=== PATIENT | male | born 1985 | race Caucasian/White ===

== ENCOUNTER 2017-07-25 14:39 | Emergency (ER) | payer BC ==
[2017-07-25 14:45] VITALS: BP 144/87; PULSE 98; TEMP 98; BMI 39.5
--- NOTE | 2017-07-25 16:02 | PDOC ---
History of Present Illness - History of Present Illness Initial Comments: 07/25/17 16:05 31 y/o M with a PMH of HTN presents to the ED with low back pain since yesterday. Patient bent down to tie his shoes yesterday and when he stood up he felt something pop in his back. Since then, he has had severe worsening pain in his low back. He reports that movement exacerbates his pain. He took Aleve with no relief. Denies numbness, tingling. Denies fever, chills. Denies any other complaints. <Briana Guo - Last Filed: 07/25/17 16:05> <Catracho Yuen - Last Filed: 07/25/17 17:20> - General Chief Complaint: Back Pain Stated Complaint: BACK PAIN Time Seen by Provider: 07/25/17 14:42 Past History <Briana Guo - Last Filed: 07/25/17 16:05> - Past Medical History COPD: No Hypercholesterolemia: Yes - Surgical History Abdominal Surgery: Yes (HERNIA REPAIR) Cholecystectomy: Yes - Suicide/Smoking/Psychosocial Hx Smoking History: Never smoked Have you smoked in the past 12 months: No Information on smoking cessation initiated: No Hx Alcohol Use: (occasional) <Catracho Yuen - Last Filed: 07/25/17 17:20> - Past Medical History Allergies/Adverse Reactions: Allergies Allergy/AdvReac Type Severity Reaction Status Date / Time No Known Allergies Allergy Verified 07/25/17 14:40 Home Medications: Ambulatory Orders Blood Pressure Pill 1 tab PO DAILY 07/25/17 Cyclobenzaprine HCl [Flexeril -] 10 mg PO TID PRN #21 tablet 07/25/17 Ergocalciferol (Vitamin D2) [Vitamin D2] 50,000 unit PO WEEKLY 07/25/17 Naproxen 500 mg PO BID PRN #20 tablet 07/25/17 Naproxen Sodium [Aleve] 220 mg PO ASDIR 07/25/17 Oxycodone HCl/Acetaminophen [Percocet 5-325 mg Tablet] 1 - 2 tab PO Q6H PRN #20 tab MDD 6 07/25/17 Pantoprazole Sodium [Protonix] 40 mg PO DAILY #7 tablet. 07/25/17 Prednisone [Deltasone] 60 mg PO DAILY #12 tablet 07/25/17 Review of Systems - Review of Systems Comments:: 07/25/17 16:05 GENERAL/CONSTITUTIONAL: No fever or chills. No weakness. HEAD, EYES, EARS, NOSE AND THROAT: No change in vision. No ear pain or discharge. No sore throat. CARDIOVASCULAR: No chest pain or shortness of breath. RESPIRATORY: No cough, wheezing, or hemoptysis. GASTROINTESTINAL: No nausea, vomiting, diarrhea or constipation. GENITOURINARY: No dysuria, frequency, or change in urination. MUSCULOSKELETAL: (+) low back pain. No joint or muscle swelling or pain. No neck pain. SKIN: No rash NEUROLOGIC: No headache, vertigo, loss of consciousness, or change in strength/ sensation. ENDOCRINE: No increased thirst. No abnormal weight change. HEMATOLOGIC/LYMPHATIC: No anemia, easy bleeding, or history of blood clots. ALLERGIC/IMMUNOLOGIC: No hives or skin allergy. <Briana Guo A - Last Filed: 07/25/17 16:05> *Physical Exam - Vital Signs Last Vital Signs Temp Pulse Resp BP Pulse Ox 98 F 98 H 18 144/87 100 07/25/17 14:40 07/25/17 14:40 07/25/17 14:40 07/25/17 14:40 07/25/17 14:40 - Physical Exam Comments: 07/25/17 16:06 GENERAL: Awake, alert, and fully oriented, in no acute distress HEAD: No signs of trauma EYES: PERRLA, EOMI, sclera anicteric, conjunctiva clear ENT: Auricles normal inspection, hearing grossly normal, nares patent, oropharynx clear without exudates. Moist mucosa NECK: Normal ROM, supple, no lymphadenopathy, JVD, or masses BACK: Tenderness to palpation of L5. Pain reproducible wtih flexion, tenderness to palpation of his left lower back. EXTREMITIES: Normal range of motion, no edema. No clubbing or cyanosis. No cords, erythema, or tenderness NEUROLOGICAL: Cranial nerves II through XII grossly intact. Normal speech, normal gait SKIN: Warm, Dry, normal turgor, no rashes or lesions noted. <Briana Guo A - Last Filed: 07/25/17 16:05> - Vital Signs Last Vital Signs Temp Pulse Resp BP Pulse Ox 98 F 98 H 18 144/87 100 07/25/17 14:40 07/25/17 14:40 07/25/17 14:40 07/25/17 14:40 07/25/17 14:40 <Catracho Yuen - Last Filed: 07/25/17 17:20> ED Treatment Course - Medications Given in the ED: ED Medications Discontinued Medications Generic Name Dose Route Start Last Admin Trade Name Freq PRN Reason Stop Dose Admin Oxycodone/Acetaminophen 1 combo 07/25/17 15:01 07/25/17 15:12 Percocet 5/325 - PO 07/25/17 15:02 1 combo ONCE ONE Administration <Briana Guo - Last Filed: 07/25/17 16:05> - RADIOLOGY Radiology Studies Ordered: Category Date Time Status SPINE-LUMBAR SACRAL [RAD] Stat Radiology 07/25/17 15:01 Taken - Medications Given in the ED: ED Medications Discontinued Medications Generic Name Dose Route Start Last Admin Trade Name Freq PRN Reason Stop Dose Admin Oxycodone/Acetaminophen 1 combo 07/25/17 15:01 07/25/17 15:12 Percocet 5/325 - PO 07/25/17 15:02 1 combo ONCE ONE Administration <Catracho Yuen - Last Filed: 07/25/17 17:20> Medical Decision Making - Medical Decision Making 07/25/17 17:14 A portion of this note was documented by scribe services under my direction. I have reviewed the details of the note, within reason, and agree with the documentation with the following case summary and management plan written by me. Patient treated in the ED. Nursing notes are reviewed and incorporated into the medical decision-making. Vital signs reviewed. Vital Signs Temp Pulse Resp BP Pulse Ox 98 F 98 H 18 144/87 100 07/25/17 14:40 07/25/17 14:40 07/25/17 14:40 07/25/17 14:40 07/25/17 14:40 31-year-old male with past medical history of obesity presents to the emergency department with back pain. Yesterday, patient with the bend over to pick up man an object and felt a sudden onset of lower back pain worse in the left lower side. I suspect the patient may potentially have herniated his disc or with muscle spasms. Lumbosacral x-ray reviewed by me, pending official read, demonstrates no acute findings. Patient has a spine doctor that he can follow-up with. The patient will go home with his fiance. Patient's pain is improved somewhat with Percocets but advised the patient may potentially need physical therapy and/or MRI as an outpatient. Patient verbalizes understanding agrees with plan. I discussed the physical exam findings, ancillary test results and final diagnoses with the patient. I answered all of the patient's questions. The patient was satisfied with the care received and felt comfortable with the discharge plan and treatment plan. The patient will call their primary care physician within 24 hours to arrange follow-up and will return to the Emergency Department with any new, persistant or worsening symptoms. <Catracho Yuen - Last Filed: 07/25/17 17:20> *DC/Admit/Observation/Transfer - Attestations Scribe Attestion: 07/25/17 16:06 Documentation prepared by Briana Guo, acting as medical office administrator for Catracho Yuen MD. <Briana Guo - Last Filed: 07/25/17 16:05> - Discharge Dispostion Admit: No <Catracho Yuen - Last Filed: 07/25/17 17:20> Diagnosis at time of Disposition: Back pain Qualifiers: Back pain location: low back pain Chronicity: acute Back pain laterality: unspecified Sciatica presence: unspecified whether sciatica present Qualified Code(s): M54.5 - Low back pain - Discharge Dispostion Disposition: HOME Condition at time of disposition: Stable - Prescriptions Prescriptions: Cyclobenzaprine HCl [Flexeril -] 10 mg PO TID PRN #21 tablet PRN Reason: Muscle Spasm Naproxen 500 mg PO BID PRN #20 tablet PRN Reason: Back Pain Oxycodone HCl/Acetaminophen [Percocet 5-325 mg Tablet] 1 - 2 tab PO Q6H PRN #20 tab MDD 6 PRN Reason: Back Pain Pantoprazole Sodium [Protonix] 40 mg PO DAILY #7 tablet. Prednisone [Deltasone] 60 mg PO DAILY #12 tablet - Referrals Referrals: Edison Valencia [Primary Care Provider] - - Patient Instructions Printed Discharge Instructions: DI for Low Back Pain, Back Pain (Alternative Therapy) Additional Instructions: Take 500 mg naproxen every 12 hours as needed for pain. For additional relief, take a tablet of percocet every 6 hours as needed. For muscle relaxants, take a tablet of flexeril every 8 hours as needed. Please finish the prednisone. These medications may make your stomach upset, so please take the protonix. Call to schedule an appointment with your doctor, as you may need physical therapy and/or MRI. - Post Discharge Activity Forms/Work/School Notes: Back to Work
[2017-07-25] MEDS ORDERED: predniSONE 20 MG TABLET (UD) PO ONE (17:13)
[2017-07-25] MEDS ORDERED: predniSONE 20 MG TABLET (UD) ONE (17:15)
== END 2017-07-25 17:30 | disposition home or self-care (01) ==
LOC: FER 14:39
DX: M54.5 Low back pain (principal); I10 Essential (primary) hypertension; E78.00 Pure hypercholesterolemia, unspecified
CPT/HCPCS: 72100-TC; 99283-25

== ENCOUNTER 2017-08-20 04:17 | Emergency (ER) | payer BC ==
[2017-08-20 04:23] VITALS: BP 142/90; PULSE 90; TEMP 97.8; BMI 39.5
[2017-08-20] MEDS ORDERED: KETOROLAC TROMETHAMINE 60 MG/2 ML VIAL IM ONE (04:56)
--- NOTE | 2017-08-20 04:56 | PDOC ---
History of Present Illness - General Chief Complaint: Back Pain Stated Complaint: LOWER BACK PAIN Time Seen by Provider: 08/20/17 04:22 - History of Present Illness Initial Comments: this 31-year-old man, seen here 07/25/17 with new onset left lower back pain presents with 1 day history of re-exacerbation of the pain. Patient had felt better after regimen that was prescribed here but started physical therapy few days ago. MRI was performed in patients scheduled to see spinal surgeon on , August 27. Last night, he began to have same pain that he had in late July without new radiation or change in location. He denies groin numbness or difficulty with urination/defecation. Patient basically has run out of the medications that were prescribed in July Past History - Past Medical History Allergies/Adverse Reactions: Allergies Allergy/AdvReac Type Severity Reaction Status Date / Time No Known Allergies Allergy Verified 07/25/17 14:40 Home Medications: Ambulatory Orders Blood Pressure Pill 1 tab PO DAILY 07/25/17 Cyclobenzaprine HCl [Flexeril -] 10 mg PO TID PRN #21 tablet 07/25/17 Ergocalciferol (Vitamin D2) [Vitamin D2] 50,000 unit PO WEEKLY 07/25/17 Naproxen 500 mg PO BID PRN #20 tablet 07/25/17 Naproxen Sodium [Aleve] 220 mg PO ASDIR 07/25/17 Oxycodone HCl/Acetaminophen [Percocet 5-325 mg Tablet] 1 - 2 tab PO Q6H PRN #20 tab MDD 6 07/25/17 Pantoprazole Sodium [Protonix] 40 mg PO DAILY #7 tablet. 07/25/17 Prednisone [Deltasone] 60 mg PO DAILY #12 tablet 07/25/17 Cyclobenzaprine HCl [Flexeril -] 10 mg PO TID PRN #20 tablet 08/20/17 Naproxen Sodium 550 mg PO BID PRN #14 tablet 08/20/17 Oxycodone HCl/Acetaminophen [Percocet 5-325 mg Tablet] 1 tab PO Q6H PRN #12 tablet MDD 4 08/20/17 Pantoprazole Sodium [Protonix -] 40 mg PO DAILY #7 tablet.ec 08/20/17 Prednisone [Deltasone -] 60 mg PO DAILY #12 tablet 08/20/17 COPD: No Hypercholesterolemia: Yes - Surgical History Abdominal Surgery: Yes (HERNIA REPAIR) Cholecystectomy: Yes - Suicide/Smoking/Psychosocial Hx Smoking History: Never smoked Have you smoked in the past 12 months: No Number of Cigarettes Smoked Daily: 0 Information on smoking cessation initiated: No Hx Alcohol Use: No Drug/Substance Use Hx: No Substance Use Type: None *Physical Exam - Vital Signs Last Vital Signs Temp Pulse Resp BP Pulse Ox 97.8 F 90 15 142/90 98 08/20/17 04:20 08/20/17 04:20 08/20/17 04:20 08/20/17 04:20 08/20/17 04:20 Progress Note - Progress Note Progress Note: Clinical presentation most consistent with reactive exacerbation of lower back pain, likely secondary to strain since starting physical therapy. On exam, he has no evidence of lower extremity weakness or sensory deficit. Medical Decision Making - Medical Decision Making Patient feels better after Toradol 60 mg IM followed by Percocet 5/325 2 tabs by mouth. *DC/Admit/Observation/Transfer Diagnosis at time of Disposition: Back pain Qualifiers: Back pain location: low back pain Chronicity: chronic Back pain laterality: left Sciatica presence: without sciatica Qualified Code(s): M54.5 - Low back pain - Discharge Dispostion Disposition: HOME Condition at time of disposition: Stable - Prescriptions Prescriptions: Cyclobenzaprine HCl [Flexeril -] 10 mg PO TID PRN #20 tablet PRN Reason: Muscle Spasms Naproxen Sodium 550 mg PO BID PRN #14 tablet PRN Reason: Back Pain Oxycodone HCl/Acetaminophen [Percocet 5-325 mg Tablet] 1 tab PO Q6H PRN #12 tablet MDD 4 PRN Reason: Severe Pain Pantoprazole Sodium [Protonix -] 40 mg PO DAILY #7 tablet.ec Prednisone [Deltasone -] 60 mg PO DAILY #12 tablet - Referrals - Patient Instructions Printed Discharge Instructions: Low Back Pain Additional Instructions: Restart prednisone as prescribed for the next 4 days Continue naproxen/Flexeril/Percocet as needed for pain Protonix 40 mg daily while taking prednisone/naproxen Follow-up with your back surgeon on , August 27 as scheduled Return to ER if you have worsening pain or experience new weakness/numbness in legs - Post Discharge Activity
[2017-08-20] MEDS ORDERED: KETOROLAC TROMETHAMINE 60 MG/2 ML VIAL ONE (04:59)
== END 2017-08-20 06:07 | disposition home or self-care (01) ==
LOC: FER 04:17
PROC: 3E0233Z Introduction of Anti-inflammatory into Muscle, Percutaneous Approach (ICD-10-PCS; principal; 2017-08-20)
DX: M54.5 Low back pain (principal); E78.00 Pure hypercholesterolemia, unspecified
CPT/HCPCS: 99282-25

== ENCOUNTER 2020-11-12 18:25 | Emergency (ER) | payer BC ==
[2020-11-12 19:00] VITALS: TEMP 98.1; BMI 43.8
[2020-11-12 19:17] LABS: HEMOGLOBIN 15.4 GM/dl (11.7-16.9); RDW 12.3 % (11.9-15.9)
[2020-11-12] MEDS ORDERED: ALPRAZolam 1 MG TABLET PO PRN (19:17)
[2020-11-12 19:18] LABS: BASO % 2.2 % (0-2.0); EOS % 2.1 % (0-4.5); HEMATOCRIT 44.6 % (35.4-49); MCH 31.3 pg (25.7-33.7); MCHC 34.6 g/dl (32.0-35.9); MEAN CELL VOLUME 90.6 fl (80-96); MEAN PLT VOLUME 8.8 fl (7.5-11.1); MONO % 8.5 % (3.8-10.2); NEUT % 59.2 % (42.8-82.8); PLATELET COUNT 339 K/MM3 (134-434); RBC 4.92 M/mm3 (4.00-5.60); WHITE BLOOD COUNT 12.2 K/mm3 (4.0-10.8)
[2020-11-12] MEDS ORDERED: ALPRAZolam 0.25 MG TABLET ONE (19:21)
[2020-11-12 19:26] LABS: ALBUMIN 4.1 g/dl (3.4-5.0); ALK PHOS 63 U/L (45-117); ANION GAP 10 MMOL/L (8-16); BILIRUBIN,TOTAL 0.5 mg/dl (0.2-1); CHLORIDE 104 mmol/L (98-107); CO2 24 mmol/L (21-32); CREATININE 0.9 mg/dl (0.55-1.3); GLUCOSE,RANDOM 100 mg/dl (74-106); SGOT/AST 31 U/L (15-37); SGPT/ALT 55 U/L (13-61); SODIUM 138 mmol/L (136-145); TOT PROT 7.6 g/dl (6.4-8.2)
[2020-11-12 20:45] VITALS: BP 147/91
[2020-11-12] MEDS ORDERED: KETOROLAC TROMETHAMINE 30 MG/1 ML VIAL ONE (21:00)
[2020-11-12] MEDS ORDERED: KETOROLAC TROMETHAMINE 30 MG/1 ML VIAL IVPUSH ONE (21:07)
[2020-11-12 21:17] VITALS: PULSE 98
== END 2020-11-12 21:17 | disposition home or self-care (01) ==
LOC: FER 18:25
PROC: 3E0333Z Introduction of Anti-inflammatory into Peripheral Vein, Percutaneous Approach (ICD-10-PCS; principal; 2020-11-12)
DX: R07.9 Chest pain, unspecified (principal)
CPT/HCPCS: 36415; 71045-TC-FY; 80053; 84484; 85025; 85379; 93005; 99285-25